=== PATIENT | male | born 1955 | race Caucasian/White ===

== ENCOUNTER 2021-07-24 00:14 | Day surgery (SDC) | payer BC, SELFPAY ==
[2021-07-10 11:11] VITALS: BMI 26.5
--- NOTE | 2021-07-23 16:29 | WPDANESEPPF ---
Anes - Initial Pre Proc Eval Procedure: Operation Date: 07/24/21 08:00 Proposed Procedures p Screening Colonoscopy - Gopi Weller MD Date/Time: 07/23/21 16:29 Surgeon: Gopi Weller MD Pre Op Diagnosis: neoplasm screening, hx of colon polyps Patient Data Age: 65 Gender: M Height: 1.78 m Weight: 84 kg Allergies Allergy/AdvReac Type Severity Reaction Status Date / Time Sulfa (Sulfonamide Allergy Intermediate Unknown Verified 07/24/21 06:53 Antibiotics) Home Medications Medication Instructions Recorded Confirmed Type aspirin [Aspir-81] 81 mg PO DAILY 07/10/21 07/24/21 History metformin 1,000 mg PO BID 07/10/21 07/24/21 History potassium chloride 20 meq PO DAILY 07/10/21 07/24/21 History potassium citrate 10 meq PO DAILY 07/10/21 07/24/21 History pravastatin 40 mg PO DAILY 07/10/21 07/24/21 History Patient hx anesthesia problems: none Family hx anesthesia problems: none Results Review: All pre-operative results and documents have been reviewed as part of the pre-operative evaluation. [facility] Past Medical History Medical History (Updated 07/23/21 @ 16:29 by Brennen Lemos MD) Diabetes Overweight (BMI 25.0-29.9) Ureterolithiasis Social History Social History Smoking packs per day: 1 Smoking cigarettes per day: 20.0 Years smoked: 20 Smoking pack-years: 20.00 Smoking status: Former smoker Tobacco type: cigarettes Alcohol intake: current Alcohol use details: occasional-rare use Substance use: never Substance use type: former substance user Living arrangements: with family Additional living arrangements comments: lives with spouse Spiritual care concerns: No Anes - Eval Final PreProcedure Day of Procedure 07/23/21 16:29 Patient weight: overweight Heart: regular rate and rhythm Lungs: clear to auscultation and normal air movement Airway: Mallampati scale class II Neurological: alert and oriented Last oral intake: >/= 8 hours ASA classification: III Emergent: no Anesthetic plan: proceed Anesthesia type and monitoring: general GIVS Results Review: All pre-operative results and documents have been reviewed as part of the pre-operative evaluation. Informed Consent: The patient's anesthetic plan and its attendant risks and benefits were discussed with the patient/family/POA. Questions were solicited and answers provided to the satisfaction of the patient/family/POA.
[2021-07-24 06:54] VITALS: BP 147/100; PULSE 58; RESP 16; TEMP 35.9; O2SAT 98
[2021-07-24] MEDS: LACTATED RINGERS 1,000 ML 150 ML IV CONT (07:07)
[2021-07-24 07:16] LABS: Glucose Point of Care 152 mg/dl (65-105)
--- NOTE | 2021-07-24 07:31 | WPDGICN ---
Assessment and Plan Assessment and plan (1) History of colon polyps: Code(s): Z86.010 - Personal history of colonic polyps Status: Acute Assessment and Plan: Patient has a history of colon polyps 5 years ago after colonoscopy in 2016. He presents today for follow-up examination. Further recommendations will be given after colonoscopy. GI Consult Note Consult date/time: 07/24/21 07:31 HPI: Arnold Magallanes is a 65 year old male Presents for screening colonoscopy. Patient has a history of colon polyps removed in 2016. He states his current weight appetite bowel movements are normal. He presents for follow-up colonoscopy. He has had no bleeding. He denies any abdominal pain. Review of Systems Review of Systems: All systems reviewed & are unremarkable except as noted in HPI and below PMFSH Past Medical History Medical History (Updated 07/24/21 @ 07:32 by Gopi Weller MD) Diabetes Overweight (BMI 25.0-29.9) Ureterolithiasis Social History Social History Smoking packs per day: 1 Smoking cigarettes per day: 20.0 Years smoked: 20 Smoking pack-years: 20.00 Smoking status: Former smoker Tobacco type: cigarettes Alcohol intake: current Alcohol use details: occasional-rare use Substance use: never Substance use type: former substance user Living arrangements: with family Additional living arrangements comments: lives with spouse Spiritual care concerns: No Meds Home Medications and Allergies Home Medications Medication Instructions Recorded Confirmed Type aspirin [Aspir-81] 81 mg PO DAILY 07/10/21 07/24/21 History metformin 1,000 mg PO BID 07/10/21 07/24/21 History potassium chloride 20 meq PO DAILY 07/10/21 07/24/21 History potassium citrate 10 meq PO DAILY 07/10/21 07/24/21 History pravastatin 40 mg PO DAILY 07/10/21 07/24/21 History Allergies Allergy/AdvReac Type Severity Reaction Status Date / Time Sulfa (Sulfonamide Allergy Intermediate Unknown Verified 07/24/21 06:53 Antibiotics) Vital Signs Vital Signs - 24 hr 07/24/21 06:54 Temperature 96.7 F L Pulse Rate 58 L Respiratory Rate 16 Blood Pressure 147/100 H Pulse Oximetry 98 Exam Narrative: Physical exam reveals patient be alert. Vital signs stable. HEENT exam is unremarkable. Patient is anicteric. Lungs are clear to auscultation and percussion. Heart is without murmur or extra sounds. Abdominal exam bowel sounds are present soft nontender with no organomegaly. Digital external rectal exam is normal.
[2021-07-24 08:15] VITALS: BP 115/85; PULSE 71; RESP 19; O2SAT 95
[2021-07-24 08:25] VITALS: BP 129/88; PULSE 57; RESP 19; O2SAT 98
[2021-07-24 08:35] VITALS: BP 123/85; PULSE 58; RESP 14; O2SAT 100
== END 2021-07-24 08:40 | disposition home or self-care (01) ==
PROVIDERS: PCP Family Medicine; Visit Provider Internal Medicine Gastroenterology
PROC: 0DJD8ZZ Inspection of Lower Intestinal Tract, Via Natural or Artificial Opening Endoscopic (ICD-10-PCS; CPT 45378; principal; 2021-07-24 08:00)
DX: Z12.11 Encounter for screening for malignant neoplasm of colon (principal); K63.5 Polyp of colon; K64.8 Other hemorrhoids; K57.30 Diverticulosis of large intestine without perforation or abscess without bleeding; E11.9 Type 2 diabetes mellitus without complications; Z79.84 Long term (current) use of oral hypoglycemic drugs; Z79.82 Long term (current) use of aspirin; Z87.891 Personal history of nicotine dependence
CPT/HCPCS: 45380; 82948; 88305; J2704; J7120